=== PATIENT | female | born 1975 | race Caucasian/White ===

== ENCOUNTER → 2016-12-02 | Outpatient (CLI) | payer BC ==
--- NOTE | 2016-12-03 14:28 | MM ---
Reason for exam: screening (asymptomatic). History: Family history of breast cancer in paternal grandmother and breast cancer in aunt. Physical Findings: A clinical breast exam by your physician is recommended on an annual basis and results should be correlated with mammographic findings. MG Screening Mammo w CAD Bilateral CC and MLO view(s) were taken. Prior study comparison: November 22, 2014, mammogram, performed at [facility]. There are scattered fibroglandular densities. No significant changes when compared with prior studies. ASSESSMENT: Benign, BI-RAD 2 RECOMMENDATION: Routine screening mammogram of both breasts in 1 year.
== END | disposition home or self-care (01) ==
LOC: RADMAMWWP 16:48
PROVIDERS: ATTEND Obstetrics & Gynecology
DX: Z12.31 Encounter for screening mammogram for malignant neoplasm of breast (principal)

== ENCOUNTER → 2017-02-06 | Outpatient (CLI) | payer BC ==
--- NOTE | 2017-02-06 21:45 | MR ---
EXAMINATION TYPE: MR shoulder RT wo con DATE OF EXAM: 02/06/2017 9:28 PM COMPARISON: NONE HISTORY: Right shoulder pain since Sep 2016, with Limited ROM TECHNIQUE: Multiplanar multispin echo imaging of the right shoulder was performed. FINDINGS: Rotator cuff : Thickening and heterogeneity of the supraspinatus tendon compatible with tendinopathy. There is partial full-thickness tear involving the supraspinatus tendon near the humeral insertion. No evidence for retracted tear. Small amount of fluid is seen within the subacromial subdeltoid bursa . Remaining rotator cuff tendons are unremarkable. Musculature: There is no muscular tear, contusion, or atrophy. Acromioclavicular joint : Mild AC joint arthropathy. Subacromial spurring resulting subacromial impin gement. Osseous structures : There are no fractures or regions of abnormal bone marrow signal intensity. Long biceps tendon : The biceps tendon is normally situated within the bicipital groove. No complete or partial biceps tendon tear is present. Glenohumeral Joint fluid : There is no glenohumeral joint effusion. Cartilage and Bone : No focal hyaline cartilage defects are noted. No Hill-Sachs, reverse Hill-Sachs, or bony Bankart lesions are seen. Labrum : There are no SLAP or soft tissue Bankart lesions. No paralabral cysts are seen. OTHER FINDINGS : none IMPRESSION: 1. 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
== END | disposition home or self-care (01) ==
LOC: RADMRIMAIN 20:35
PROVIDERS: ATTEND Internal Medicine
DX: S46.811A Strain of other muscles, fascia and tendons at shoulder and upper arm level, right arm, initial encounter (principal)

== ENCOUNTER → 2018-03-03 | Outpatient (CLI) | payer BC, OTHER ==
--- NOTE | 2018-03-05 09:53 | MM ---
Reason for exam: screening (asymptomatic). Last mammogram was performed 1 year and 3 months ago. History: Family history of breast cancer in paternal grandmother and breast cancer in aunt. Physical Findings: A clinical breast exam by your physician is recommended on an annual basis and results should be correlated with mammographic findings. MG 3D Screening Mammo W/Cad Bilateral CC and MLO view(s) were taken. Prior study comparison: December 02, 2016, bilateral MG screening mammo w CAD. November 22, 2014, mammogram, performed at [facility]. There are scattered fibroglandular densities. No significant changes when compared with prior studies. ASSESSMENT: Negative, BI-RAD 1 RECOMMENDATION: Routine screening mammogram of both breasts in 1 year.
== END | disposition home or self-care (01) ==
LOC: RADMAMWWP 11:04
PROVIDERS: ATTEND Obstetrics & Gynecology
DX: Z12.31 Encounter for screening mammogram for malignant neoplasm of breast (principal); Z80.3 Family history of malignant neoplasm of breast
CPT/HCPCS: 77063; 77067

== ENCOUNTER 2018-05-16 15:45 | Emergency (ER) | payer OTHER, BC ==
[2018-05-16 15:59] VITALS: RESP 18; TEMP 99.4
--- NOTE | 2018-05-16 16:45 | XR ---
EXAMINATION TYPE: XR knee complete bilateral DATE OF EXAM: 05/16/2018 COMPARISON: NONE HISTORY: Knee pain TECHNIQUE: 6 views FINDINGS: 3 views of each knee were obtained. I see no fracture nor dislocation. Joint spaces are nor mal. There is no sign of knee joint effusion. IMPRESSION: Negative bilateral knee exam.
[2018-05-16] MEDS ORDERED: ACETAMINOPHEN TAB 500 MG TAB PO STA (16:53)
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
[2018-05-16 19:00] VITALS: BP 138/78; PULSE 80
== END 2018-05-16 18:40 | disposition home or self-care (01) ==
LOC: EC 15:45
DX: S00.83XA Contusion of other part of head, initial encounter (principal); S80.02XA Contusion of left knee, initial encounter; S80.01XA Contusion of right knee, initial encounter; M54.2 Cervicalgia; F17.200 Nicotine dependence, unspecified, uncomplicated; Z79.1 Long term (current) use of non-steroidal anti-inflammatories (NSAID); Z88.2 Allergy status to sulfonamides; V43.52XA Car driver injured in collision with other type car in traffic accident, initial encounter; Y92.410 Unspecified street and highway as the place of occurrence of the external cause
CPT/HCPCS: 70450; 72125; 99285

== ENCOUNTER → 2018-12-16 | Outpatient (CLI) | payer BC ==
--- NOTE | 2018-12-17 08:11 | MM ---
Reason for exam: clinical finding. Last mammogram was performed 9 months ago. History: Family history of breast cancer in paternal grandmother and breast cancer in aunt. Indicated problem(s): palpable abnormality in the right breast. Physical Findings: Nurse Summary: 0.5 x 0.5cm nodule in the right breast at 6 o'clock (nurse ts). MG 3D Diag Mammo W/Cad [facility] Bilateral CC and MLO view(s) were taken. Prior study comparison: March 03, 2018, bilateral MG 3d screening mammo w/cad. December 02, 2016, bilateral MG screening mammo w CAD. The breast tissue is heterogeneously dense. This may lower the sensitivity of mammography. There is no discrete abnormality including area of concern marked by BB. No significant new findings when compared with previous films. These results were verbally communicated with the patient and result sheet given to the patient on 12/16/18. ASSESSMENT: Benign, BI-RAD 2 RECOMMENDATION: Routine screening mammogram of both breasts in 1 year.
--- NOTE | 2018-12-17 08:12 | USB ---
Reason for exam: clinical finding. History: Family history of breast cancer in paternal grandmother and breast cancer in aunt. Indicated problem(s): palpable abnormality in the right breast. US Breast RT Right complete breast ultrasound includes all four quadrants, the retroareolar region and axilla. Finding demonstrates no cystic or solid lesion seen. These results were verbally communicated with the patient and result sheet given to the patient on 12/16/18. ASSESSMENT: Negative, BI-RAD 1 RECOMMENDATION: Routine screening mammogram of both breasts in 1 year. Manage patient on a clinical basis.
== END | disposition home or self-care (01) ==
LOC: RADMAMWWP 14:14
PROVIDERS: ATTEND Obstetrics & Gynecology
DX: N60.09 Solitary cyst of unspecified breast (principal)
CPT/HCPCS: 77062; 77066

== ENCOUNTER 2019-02-24 06:27 | Day surgery (SDC) | payer BC ==
[2019-02-19 10:38] VITALS: BMI 39.9
[~2019-02-24 06:27] MED LIST: HYDROmorphone 0.5 MG/0.5 ML SYRINGE IVP PRN; LACTATED RINGERS 1,000 ML IV SCH; LIDOCAINE 1% 20 ML VIAL (10MG/ML) FOR IV START INTRADERMA PRN; ONDANSETRON 4 MG/2 ML VIAL IVP ONE; Pre Op ABX Message 1 EACH MISC MISCELLANE ONE
[2019-02-24 06:55] VITALS: RESP 16; TEMP 98.4
[2019-02-24] MEDS ORDERED: KETOROLAC 30 MG/ML 1 ML VIAL ONE (07:25)
[2019-02-24] MEDS ORDERED: PROPOFOL 10 MG/ML 20 ML VIAL IV ONE (07:25)
[2019-02-24] MEDS ORDERED: LIDOCAINE 1% INJ 10MG/ML (20 ML MDV) ONE (07:25)
[2019-02-24] MEDS ORDERED: fentaNYL (PF) 50 MCG/ML 2 ML AMP ONE (07:25)
[2019-02-24] MEDS ORDERED: MIDAZOLAM 2 MG/2 ML VIAL ONE (07:25)
[2019-02-24] MEDS ORDERED: SODIUM CHLORIDE 0.9% 50 ML with ceFAZolin 2,000 MG IV ONE ×2 (07:29)
[2019-02-24] MEDS ORDERED: LIDOCAINE 1% INJ 10MG/ML (20 ML MDV) SQ ONE (07:37)
--- NOTE | 2019-02-24 08:12 | P.OP ---
Date of Procedure: 02/24/19 Preoperative Diagnosis: Plantar fasciitis right foot Postoperative Diagnosis: Same Procedure(s) Performed: Endoscopic plantar fasciotomy procedure right foot Anesthesia: MAC Surgeon: Robert Llanes Operative Findings: Unremarkable Description of Procedure: On the date of surgery the patient was taken to the operating room in good preoperative condition she was placed on the operating table in a supine position where an IV was started and adequate IV anesthetic agents were utilized. Anesthesia was then further supplemented with approximately 10 mL of 1% Xylocaine plain given in an infiltrative block to the patient's right heel. The patient's right foot and ankle were then prepped and draped in the usual aseptic manner. Over heavy web roll padding an ankle tourniquet was placed above the patient's malleoli The patient's right foot and ankle were then elevated and exsanguinated of blood and after approximately 1 minutes. A time the ankle tourniquet was inflated to approximately 250 mmHg. At this point in time attention was directed to the plantar medial side of the patient's right heel where an approximately 1 cm linear incision was placed in line with the medial band of the plantar fascia. The incision was was then deepened down through the level of subcutaneous tissue layers all neurovascular structures encountered were identified isolated and were retracted dissection was then carried deep via blunt technique down to the medial band of the plantar fascia a fascial elevator was then used to identify the plantar fascia was pas sed along the inferior surface from medially to laterally rating a channel for the obturator and cannula complex. This was then inserted and a lateral exit portal incision was made the obturator was then removed endoscope was introduced and L blade was introduced from the lateral side and the medial band of the plantar fascia was severed upon completion of this fascial probe was used to ensure that all fibers had been severed and when this was seen to be true the surgical site was flushed with copious amounts of sterile saline solution the cannula was then removed. Skin edges were then coaptated and maintained utilizing 4-0 nylon simple interrupted sutures. Adaptic Kerlix fluffs four-inch conformer and 4 inch Coban was then used to form a compression dressing and the ankle tourniquet to the patient's right ankle was deflated. Adequate hemostatic return was seen in all digits the patient's right foot The patient tolerated the surgery and anesthesia well was taken to the recovery room in good postoperative condition.
[2019-02-24 08:47] VITALS: BP 115/73; PULSE 63
== END 2019-02-24 09:08 | disposition home or self-care (01) ==
LOC: OR 06:27
PROVIDERS: ATTEND Podiatrist Foot & Ankle Surgery
DX: M72.2 Plantar fascial fibromatosis (principal); E66.01 Morbid (severe) obesity due to excess calories; Z68.39 Body mass index [BMI] 39.0-39.9, adult; F17.200 Nicotine dependence, unspecified, uncomplicated; Z79.1 Long term (current) use of non-steroidal anti-inflammatories (NSAID); Z79.899 Other long term (current) drug therapy; Z88.1 Allergy status to other antibiotic agents; Z88.2 Allergy status to sulfonamides; Z98.84 Bariatric surgery status; Z98.51 Tubal ligation status
CPT/HCPCS: 29893; 81025; J2250; J2405; J0690; J2001; J3010; J1885; J2704

== ENCOUNTER → 2019-06-11 | Outpatient (CLI) | payer BC ==
[2019-06-11 12:59] LABS: HCT 40.6 % (34.0-46.0); HGB 13.8 gm/dL (11.4-16.0); MCH 31.6 pg (25.0-35.0); MCHC 34.1 g/dL (31.0-37.0); MCV 92.7 fL (80.0-100.0); Mean Platelet Volume 6.6; Platelet Count 336 k/uL (150-450); RBC 4.38 m/uL (3.80-5.40); RDW 12.5 % (11.5-15.5)
[2019-06-11 21:21] LABS: African American GFR (CKD) 105.4 (60.0-200.0); Albumin 4.1 g/dL (3.80-4.90); Albumin/Globulin Ratio 1.95 (1.60-3.17); Anion Gap 8.9 mmol/L (4.00-12.00); BUN/Creat Ratio 16.25 Ratio (12.00-20.00); Carbon Dioxide 24.1 mmol/L (21.6-31.8); Chol/HDL Ratio 3.15; Globulin 2.1 g/dL (1.6-3.3); LDL Cholesterol,Calculated 104.2 mg/dL (0.0-131.0); Potassium 4.2 mmol/L (3.5-5.5); Total Bilirubin 0.5 mg/dL (0.2-1.2); Total Protein 6.2 g/dL (6.2-8.2); VLDL Calculation 24.8 mg/dL (5.00-40.00)
[2019-06-11 21:27] LABS: T4, Free (Free Thyroxine) 1.2 ng/dL (0.80-1.80)
== END | disposition home or self-care (01) ==
LOC: LABWHC1 11:46
PROVIDERS: ATTEND Internal Medicine
DX: M54.5 Low back pain (principal); R30.0 Dysuria; R10.84 Generalized abdominal pain
CPT/HCPCS: 36415; 80053; 80061; 82150; 84439; 84443; 85027

== ENCOUNTER → 2019-06-26 | Outpatient (CLI) | payer BC ==
--- NOTE | 2019-06-26 20:21 | CT ---
EXAMINATION TYPE: CT abdomen pelvis w con DATE OF EXAM: 06/26/2019 COMPARISON: None INDICATION: abdominal pain DLP: 1418.6 mGycm, Automated exposure control for dose reduction was used. CONTRAST: 100 mL of Isovue 300. Study performed with Oral Contrast TECHNIQUE: Axial images were obtained from above the diaphragm to the pubic rami in the axial plane a t 5 mm thick sections. Reconstructed images are reviewed on the computer in the coronal plane. FINDINGS: Limited CT sections are obtained the lung bases. There is a 0.4 cm faint density within the right mi ddle lobe. Series 4 image 1. Small to moderate size hiatal hernia is present containing oral contras t. CT ABDOMEN: Liver: Normal Spleen: Normal Pancreas: Normal Adrenal glands: The adrenal glands are normal. Gallbladder: Normal Kidneys: No masses are evident. No hydronephrosis is present. No cysts are present. Delayed images were obtained through the kidneys, which remain unremarkable. Aorta: Normal Inferior vena cava: Normal. CT PELVIS: Loops of bowel within the abdomen and pelvis are normal. There are loops of bowel which are incom pletely distended or lack oral contrast limiting their evaluation. Appendix: Not identified. No suspicious tubular structures or inflammatory changes are evident. Urinary bladder: Normal. Genitourinary structures: Uterus appears unremarkable. A 2.2 cm transverse dimension right ovarian cy st is present. This could be further evaluated and followed with ultrasound. Osseous structures: No suspicious lytic or sclerotic lesions. IMPRESSIONS: 1. Right ovarian cyst. This could be further evaluated and followed with ultrasound.
== END | disposition home or self-care (01) ==
LOC: RADCTMAIN 13:10
PROVIDERS: ATTEND Internal Medicine
DX: N83.201 Unspecified ovarian cyst, right side (principal); Z88.2 Allergy status to sulfonamides
CPT/HCPCS: 74177; Q9967

== ENCOUNTER → 2020-11-10 | Outpatient (CLI) | payer BC ==
--- NOTE | 2020-11-14 08:29 | MM ---
Reason for exam: screening (asymptomatic). Last mammogram was performed 1 year and 11 months ago. History: Family history of breast cancer in paternal grandmother and breast cancer in aunt. Physical Findings: A clinical breast exam by your physician is recommended on an annual basis and results should be correlated with mammographic findings. MG 3D Screening Mammo W/Cad Bilateral CC and MLO view(s) were taken. Prior study comparison: December 16, 2018, bilateral MG 3d diag mammo w/cad [facility]. March 03, 2018, bilateral MG 3d screening mammo w/cad. The breast tissue is heterogeneously dense. This may lower the sensitivity of mammography. Superior right MLO asymmetric density does not persist on 3D images. No significant changes when compared with prior studies. ASSESSMENT: Negative, BI-RAD 1 RECOMMENDATION: Routine screening mammogram of both breasts in 1 year.
== END | disposition home or self-care (01) ==
LOC: RADMAMWWP 16:07
PROVIDERS: ATTEND Obstetrics & Gynecology
DX: Z12.31 Encounter for screening mammogram for malignant neoplasm of breast (principal); Z80.3 Family history of malignant neoplasm of breast
CPT/HCPCS: 77063; 77067

== ENCOUNTER → 2022-03-22 | Outpatient (CLI) | payer BC ==
--- NOTE | 2022-03-25 09:44 | MM ---
Reason for Exam: Screening (asymptomatic). Last mammogram was performed 1 year(s) and 4 month(s) ago. Patient History: Menarche at age 12. First Full-Term at age 22. Paternal grandmother had breast cancer. Maternal aunt had breast cancer. Risk Values: Monique 5 year model risk: 0.8%. NCI Lifetime model risk: 9.4%. Prior Study Comparison: 03/03/2018 Bilateral Screening Mammogram, [facility]. 12/16/2018 Bilateral Diagnostic Mammogram, [facility]. 11/10/2020 Bilateral Screening Mammogram, [facility]. Tissue Density: There are scattered fibroglandular densities. Findings: Analyzed By CAD. There is no suspicious group of microcalcifications or new suspicious mass in either breast. Overall Assessment: Negative, BI-RAD 1 Management: Screening Mammogram of both breasts in 1 year. 1. Patient should continue monthly self breast exams. 2. A clinical breast exam by your physician is recommended on an annual basis. 3. This exam should not preclude additional follow-up of suspicious palpable abnormalities. Electronically signed and approved by: Rita Engel M.D. Radiologist
== END | disposition home or self-care (01) ==
LOC: RADMAMWWP 11:47
PROVIDERS: ATTEND Obstetrics & Gynecology
DX: Z12.31 Encounter for screening mammogram for malignant neoplasm of breast (principal); Z80.3 Family history of malignant neoplasm of breast
CPT/HCPCS: 77063; 77067

== ENCOUNTER → 2022-06-26 | Outpatient (CLI) | payer BC ==
[2022-06-26 18:33] LABS: Basophils # (A) 0.07 X 10*3/uL (0.00-0.10); Basophils % (A) 1.2 %; Eosinophils # (A) 0.14 X 10*3/uL (0.04-0.35); Eosinophils % (A) 2.5 %; HCT 34.9 % (37.2-46.3); HGB 11.5 g/dL (12.0-15.0); Immature Grans, Automated 0.2 %; Lymphocytes # (A) 2.17 X 10*3/uL (0.90-5.00); Lymphocytes % (A) 38.2 %; MCV 88.1 fL (80.0-97.0); Monocytes # (A) 0.48 X 10*3/uL (0.20-1.00); Monocytes % (A) 8.5 %; NRBC Per 100 WBC 0 /100 WBCS (0.0-0.0); Neutrophils # (A) 2.81 X 10*3/uL (1.80-7.70); Neutrophils % (A) 49.4 %; Platelet Count 337 X 10*3/uL (140-440); RBC 3.96 X 10*6/uL (4.10-5.20); RDW 13.9 % (11.5-14.5); WBC 5.68 X 10*3/uL (4.50-10.00)
== END | disposition home or self-care (01) ==
LOC: LABPAT 14:04
PROVIDERS: ATTEND Obstetrics & Gynecology
DX: Z01.812 Encounter for preprocedural laboratory examination (principal); N92.0 Excessive and frequent menstruation with regular cycle
CPT/HCPCS: 85025

== ENCOUNTER 2022-07-23 07:59 | Day surgery (SDC) | payer BC ==
[2022-07-22 14:26] VITALS: BMI 36.6
[~2022-07-23 07:59] MED LIST changes: +DEXAMETHASONE SOD PHOSPHATE 4 MG/ML 1 ML VIAL IV ONE; +LIDOCAINE 1% (10MG/ML) FOR IV START INTRADERMA PRN; -LIDOCAINE 1% 20 ML VIAL (10MG/ML) FOR IV START INTRADERMA PRN; +SCOPOLAMINE 1 MG/72 HR PATCH TRANSDERM ONE
[2022-07-23] MEDS ORDERED: LIDOCAINE 2% INJ 20 MG/ML (2 ML VIAL) ONE (09:28)
[2022-07-23] MEDS ORDERED: KETOROLAC 15 MG/ML 1 ML VIAL ONE (09:28)
[2022-07-23] MEDS ORDERED: PROPOFOL 10 MG/ML 20 ML VIAL IV ONE (09:28)
[2022-07-23] MEDS ORDERED: MIDAZOLAM 2 MG/2 ML VIAL ONE (09:28)
[2022-07-23] MEDS ORDERED: fentaNYL (PF) 50 MCG/ML 2 ML AMP ONE (09:28)
--- NOTE | 2022-07-23 09:56 | P.OP ---
Date of Procedure: 07/23/22 Preoperative Diagnosis: Menorrhagia Postoperative Diagnosis: Same Procedure(s) Performed: Hysteroscopy, NovaSure endometrial ablation Anesthesia: HEIKE Surgeon: Thalia Schmitt Estimated Blood Loss (ml): 5 IV fluids (ml): 500 Urine output (ml): 50 Pathology: none sent Condition: stable Disposition: PACU Operative Findings: Essentially negative. Intrauterine cavity, no fibroids, polyps, septa, defects. Description of Procedure: Patient is brought to the operating suite where general anesthetic is administered without difficulty. She's placed in the dorsal lithotomy position. The appropriate timeout was performed to assure proper patient and procedural identification. Urine hCG is negative. The cervix, vagina, perineal bodies are all prepped and draped in usual sterile fashion. Bladder is drained for approximately 50 mL of clear yellow urine. Examination under anesthesia reveals a small anteverted uterus, negative adnexa bilaterally. The weighted speculum was placed into the vagina. The anterior lip of the cervix is grasped with an Allis clamp. Uterus sounds to a depth of 12 cm in the anteverted position. Cervix was gently and systematically dilated using Hanks dilators with very l ittle resistance. Hysteroscope was placed and cavity is infused with sterile saline. The cavity appears negative, no polyps, fibroids, septa, defects. Hysteroscope was removed. NovaSure wand is then placed and seated. For 52 seconds and a power of 143 W the procedure is carried out after the machine is properly calibrated and enabled. Uterine length of 6.5 cm is noted, with 4.0 cm. When the procedure is completed, the wand is removed. Hysteroscope was once again placed and the cavity appears to be uniformly blanched. All instrumentation is removed. All counts are correct. Patient is brought back to recovery room in very good condition with stable vital signs including blood pressure 126/74, pulse 64. Respirations 16. Toradol is given prior to leaving the operative suite. Patient will follow-up with me in the office in 2 weeks.
[2022-07-23 09:58] VITALS: RESP 16; TEMP 97.5
[2022-07-23 11:18] VITALS: PULSE 69
[2022-07-23 11:34] VITALS: BP 114/63
== END 2022-07-23 12:10 | disposition home or self-care (01) ==
LOC: OR 07:59
PROVIDERS: ATTEND Obstetrics & Gynecology
DX: N92.0 Excessive and frequent menstruation with regular cycle (principal); G40.909 Epilepsy, unspecified, not intractable, without status epilepticus; Z98.51 Tubal ligation status; Z79.899 Other long term (current) drug therapy
CPT/HCPCS: 81025; 58563; J2250; J1100; J2405; J3010; J1885; J2704; J2001

== ENCOUNTER 2023-07-31 06:59 | Day surgery (SDC) | payer BC ==
[2023-07-31] MEDS ORDERED: LACTATED RINGERS 1,000 ML IV SCH (07:14)
[2023-07-31 07:39] VITALS: RESP 16; TEMP 97.7
[2023-07-31] MEDS ORDERED: PROPOFOL 10 MG/ML 20 ML VIAL IV ONE (07:54)
[2023-07-31] MEDS ORDERED: LIDOCAINE 1% INJ 10MG/ML (20 ML MDV) ONE (07:54)
--- NOTE | 2023-07-31 08:01 | P.GSHP ---
History of Present Illness H&P Date: 07/31/23 Chief Complaint: Screening colonoscopy This a 47-year-old female been safe for screening colonoscopy. Patient denies any significant GI complaints. Past Medical History Past Medical History: No Reported History Additional Past Medical History / Comment(s): MIGRAINES History of Any Multi-Drug Resistant Organisms: None Reported Past Surgical History: Bariatric Surgery, Section, Orthopedic Surgery Additional Past Surgical History / Comment(s): gastric sleeve and bypass. right foot surg. Past Anesthesia/Blood Transfusion Reactions: No Reported Reaction Smoking Status: Current some day smoker - Past Family History Mother Family Medical History: No Reported History Medications and Allergies Home Medications Medication Instructions Recorded Confirmed Type Butalb/Acetaminophen/Caffeine 1 cap PO Q4HR PRN 05/16/18 07/31/23 History [Fioricet 50-300-40 mg Capsule] Meloxicam [Mobic] 15 mg PO DAILY PRN 05/16/18 07/31/23 History Citalopram Hydrobromide [CeleXA] 20 mg PO DAILY 07/22/22 07/31/23 History Allergies Allergy/AdvReac Type Severity Reaction Status Date / Time sulfamethoxazole AdvReac Itching Verified 07/31/23 07:21 [From Bactrim] trimethoprim [From Bactrim] AdvReac Itching Verified 07/31/23 07:21 Surgical - Exam Vital Signs Temp Pulse Resp BP Pulse Ox 97.7 F 61 16 136/66 98 07/31/23 07:25 07/31/23 07:25 07/31/23 07:25 07/31/23 07:25 07/31/23 07:25 - General well developed, well nourished, no distress - Eyes PERRL - ENT normal pinna - Neck no masses - Respiratory normal expansion - Cardiovascular Rhythm: regular - Abdomen Abdomen: soft, non tender Assessment and Plan Plan: We'll perform screening colonoscopy
--- NOTE | 2023-07-31 08:20 | P.OP ---
Date of Procedure: 07/31/23 Preoperative Diagnosis: Screening colonoscopy Postoperative Diagnosis: Normal colon Procedure(s) Performed: Colonoscopy Anesthesia: MAC Surgeon: Beni Bocanegra Pathology: none sent Condition: stable Disposition: PACU Description of Procedure: PROCEDURE: The patient was placed on the endoscopy table in the lateral position. Digital rectal examination was performed which revealed no abnormalities. . Flexible colonoscope was then placed in the patient's anus and passed throughout the entire colon. The ileocecal valve was visualized. The cecum, ascending, transverse, descending and sigmoid colon were normal. The rectum was normal as well. There were no masses, polyps or diverticula noted in the entire colon. SUMMARY OF FINDINGS: Normal colonoscopy.
[2023-07-31 08:51] VITALS: BP 135/78; PULSE 63
== END 2023-07-31 09:06 | disposition home or self-care (01) ==
LOC: ORWHC2ENDO 06:59
PROVIDERS: ATTEND Surgery
DX: Z12.11 Encounter for screening for malignant neoplasm of colon (principal); G43.909 Migraine, unspecified, not intractable, without status migrainosus; F12.90 Cannabis use, unspecified, uncomplicated; F17.210 Nicotine dependence, cigarettes, uncomplicated; Z79.899 Other long term (current) drug therapy; Z88.2 Allergy status to sulfonamides; Z88.1 Allergy status to other antibiotic agents; Z98.890 Other specified postprocedural states
CPT/HCPCS: 81025; 45378; J2001; J2704

== ENCOUNTER → 2024-06-17 | Outpatient (CLI) | payer BC ==
--- NOTE | 2024-06-18 09:24 | MM ---
Reason for Exam: Screening (asymptomatic). Last mammogram was performed 2 year(s) and 3 month(s) ago. Patient History: Menarche at age 12. First Full-Term at age 22. Premenopausal. Paternal grandmother had breast cancer. Maternal aunt had breast cancer. Risk Values: Monique 5 year model risk: 0.9%. NCI Lifetime model risk: 9.2%. Prior Study Comparison: 12/16/2018 Bilateral Diagnostic Mammogram, [facility]. 11/10/2020 Bilateral Screening Mammogram, [facility]. 03/22/2022 Bilateral MG 3D screening mammo w/cad, [facility]. Tissue Density: There are scattered areas of fibroglandular density. Findings: Analyzed By CAD. Right breast: There is no suspicious group of microcalcifications or new suspicious mass. Left breast: There is no suspicious group of microcalcifications or new suspicious mass. Overall Assessment: Negative, BI-RAD 1 Management: Screening Mammogram of both breasts in [address] [facility] will attempt to contact patient to return for supplemental views and ultrasound if indicated. Patient should continue monthly self-breast exams. A clinical breast exam by your physician is recommended on an annual basis. This exam should not preclude additional follow-up of suspicious palpable abnormalities. Note on Monique scores and lifetime risk: 1. A Monique score greater than 3% is considered moderate risk. If this is the case, consider specialist referral to assess eligibility for a risk reducing agent. 2. If overall lifetime risk for the development of breast cancer is 20% or higher, the patient may qualify for future screening with alternating mammogram and breast MRI. [facility], , 06/18/2024 9:20 AM. Electronically signed and approved by: Bruce Mac DO
== END ==
LOC: RADMAMWWP 16:36
PROVIDERS: ATTEND Family Medicine
CPT/HCPCS: 77063; 77067

== ENCOUNTER 2025-01-27 05:40 | Day surgery (SDC) | payer BC ==
[2025-01-27] MEDS ORDERED: LIDOCAINE 1% (10MG/ML) FOR IV START INTRADERMA PRN (06:06)
[2025-01-27] MEDS: IV FLUID CONTINUATION 1,000 ML IV ONE (06:12)
[2025-01-27] MEDS: DEXAMETHASONE SOD PHOSPHATE 4 MG/ML 1 ML VIAL IV ONE (06:50)
[2025-01-27] MEDS: ONDANSETRON 4 MG/2 ML VIAL IVP ONE (06:50)
[2025-01-27] MEDS: LACTATED RINGERS 1,000 ML IV SCH (06:51)
[2025-01-27] MEDS ORDERED: HYDROmorphone 0.5 MG/0.5 ML SYRINGE IVP PRN (07:00)
[2025-01-27] MEDS: MIDAZOLAM 2 MG/2 ML VIAL IV STA (07:03)
[2025-01-27] MEDS: fentaNYL (PF) 50 MCG/ML 2 ML AMP IVP STA (07:03)
[2025-01-27] MEDS ORDERED: ACETAMINOPHEN IV (For NPO) 1,000 MG/100 ML VIAL ONE (07:30)
[2025-01-27] MEDS ORDERED: diphenhydrAMINE 50 MG/ML 1 ML VIAL ONE (07:30)
[2025-01-27] MEDS ORDERED: MORPHINE SULFATE (PF) 0.3 MG/0.3 ML SYR ONE (07:30)
[2025-01-27] MEDS ORDERED: fentaNYL (PF) 50 MCG/ML 2 ML AMP ONE (07:30)
[2025-01-27] MEDS ORDERED: SUCCINYLCHOLINE CHLORIDE 200 MG/10 ML VIAL IV ONE (07:30)
[2025-01-27] MEDS ORDERED: NEOSTIGMINE 1 MG/ML 10 ML VIAL ONE (07:30)
[2025-01-27] MEDS ORDERED: MIDAZOLAM 2 MG/2 ML VIAL ONE (07:30)
[2025-01-27] MEDS ORDERED: PHENYLEPHRINE-0.9% NACL SYG 1,000 MCG/10 ML SYRINGE ONE (07:30)
[2025-01-27] MEDS ORDERED: LIDOCAINE 1% INJ 10MG/ML (20 ML MDV) ONE (07:30)
[2025-01-27] MEDS ORDERED: PROPOFOL 10 MG/ML 20 ML VIAL IV ONE (07:30)
[2025-01-27] MEDS ORDERED: ROCURONIUM 10 MG/ML (5 ML VIAL) IV ONE (07:30)
[2025-01-27] MEDS ORDERED: GLYCOPYRROLATE 0.2 MG/ML 2 ML VIAL ONE (07:30)
[2025-01-27] MEDS: ceFAZolin 2 GM in DEXTROSE 5% IN WATER 50 ML IVPB PRN (07:35)
--- NOTE | 2025-01-27 07:39 | P.HPOB ---
History of Present Illness H&P Date: 01/27/25 Chief Complaint: Abnormal uterine bleeding 49 year old presenting with AUB after endometrial ablation in 2021. Uterus is 9 x 6 x 5 cm on US. 4cm Right ovarian cyst and 6 cm left ovarian cyst,both simpe, are noted. Past Medical History Past Medical History: Cancer Additional Past Medical History / Comment(s): MIGRAINES, skin ca, chronic back pain & right shoulder pain History of Any Multi-Drug Resistant Organisms: None Reported Past Surgical History: Bariatric Surgery, Section, Orthopedic Surgery, Tubal Ligation, Uterine Ablation Additional Past Surgical History / Comment(s): gastric sleeve and bypass, right foot surg., x2, skin ca removed Past Anesthesia/Blood Transfusion Reactions: No Reported Reaction Smoking Status: Current some day smoker - Past Family History Mother Family Medical History: Coronary Artery Disease (CAD) Additional Family Medical History / Comment(s): CABG Father Family Medical History: Hypertension Additional Family Medical History / Comment(s): kidney issue Medications and Allergies Home Medications Medication Instructions Recorded Confirmed Type Butalb/Acetaminophen/Caffeine 1 cap PO Q4HR PRN 05/16/18 01/27/25 History [Fioricet 50-300-40 mg Capsule] Meloxicam [Mobic] 15 mg PO DAILY PRN 05/16/18 01/27/25 History Citalopram Hydrobromide [CeleXA] 20 mg PO DAILY 07/22/22 01/27/25 History HYDROcodone/APAP 5-325MG [[place] 1 tab PO BID PRN 01/21/25 01/27/25 History 5-325] Allergies Allergy/AdvReac Type Severity Reaction Status Date / Time sulfamethoxazole AdvReac Itching Verified 01/27/25 06:27 [From Bactrim] trimethoprim [From Bactrim] AdvReac Itching Verified 01/27/25 06:27 Exam Vital Signs Temp Pulse Resp BP Pulse Ox 01/27/25 07:08 63 16 116/65 98 01/27/25 06:39 97.3 F L 78 18 121/79 96 Intake and Output 01/26/25 01/27/25 01/27/25 22:59 06:59 14:59 Intake Total 200 Balance 200 Intake: IV 200 Other: Weight 103.6 kg Focused physical exam is performed. The patient is in no apparent distress, breathing is non-labored. Abdomen soft, non-tender. Extremities are non-tender and non-edematous. Assessment and Plan Assessment: 49 year old presenting for surgical management of AUB after failed endometrial ablation Plan: Risks, benefits, and alternatives to Robotic Total Laparoscopic Hysterectomy, Bilateral Salpingectomy, Bilateral Cystectomy, Diagnostic Cystoscopy, Possible Laparotomy, Possible Oophrectomy including risk of bleeding, infection, damage to surrounding structures including bladder/bowels/ureters, and post-operative VTE. The patient understands these risks and desires to proceed with surgery as discussed. All questions answered.
[2025-01-27] MEDS: BUPIVACAINE (PF) 0.25% 30 ML VIAL SQ ONE ×2 (08:24→09:10)
[2025-01-27] MEDS: LACTATED RINGERS 1,000 ML IV ONE (09:00)
--- NOTE | 2025-01-27 09:34 | P.ANPRN ---
Procedure Note - Anesthesia - Epidural/Spinal Spinal Time Out Performed: Yes Date of Procedure: 01/27/25 Procedure Start Time: 07:03 Procedure Stop Time: 07:07 Location of Patient: PreOp Indication: Acute Post-Operative Pain, Requested by Surgeon (vin) Sedation Type: Sedate with meaningful contact maintained Preparation: Sterile Prep Number of Attempts: 1 Position: Sitting Catheter: None Needle Guage: 25 Injectate: Local Lido 1% 3cc, Intrathecal Fentanyl 25mcg and Duramorph 300mcg Blood Aspirated: No Pain Paresthesia on Injection Noted: No Events: Uneventful and Well Tolerated
--- NOTE | 2025-01-27 09:43 | P.OP ---
Date of Procedure: 01/27/25 Preoperative Diagnosis: 1. Abnormal Uterine Bleeding 2. History of Prior Endometrial Ablation 3. Bilateral simple ovarian cysts Postoperative Diagnosis: 1. AUB 2. History of prior endometrial ablation 3. 1 simple and 1 hemorrhaghic right ovarian cyst Procedure(s) Performed: Robotic Assisted Total Laparoscopic Hysterectomy, Bilateral Salpingectomy, Lysis of Adhesions (10 minutes), Diagnostic Cystoscopy Implants: None Anesthesia: GETA, spinal Surgeon: Sarahi Cade Tracer Lathe Set Up Operator #1: Juana Rivera Estimated Blood Loss (ml): 50 IV fluids (ml): 1,300 Urine output (ml): 75 Pathology: other (uterus, bilateral fallopian tube segments, cervix) Condition: stable Disposition: floor Indications for Procedure: Ms. Adames is a 49 year old with AUB that persisted after an endometrial ablation who presents for surgical management with Robotic Asssited Total Laparoscopic Hysterectomy, Bilateral Salpingectomy, Bilateral Ovarian Cystectomy, Diagnostic Cystoscopy. Risks, benefits, and alternatives to surgery are discussed with the patient including risk of bleeding, infection, damage to surrounding structures including bladder/bowel/ureters, and post-operative VTE. The patient understands these risks and desires to proceed with surgery as discussed. Operative Findings: Omental adhesions to the anterior and lateral abdominal wall. Grossly u nremarkable uterus. Fallopian tubes status post tubal ligation. Right ovary with one small simple cyst and one small hemorrhaghic cyst. Left ovary unremarkable. Cystoscopy with cystitis cystica noted. Description of Procedure: Prior to the beginning of the procedure, the team paused to verify the patient's identity, the procedure to be performed (in accordance with the consent,) and the correct side/site. The patient was positioned appropriately. All relevant images and results were properly labeled and displayed. We addressed antibiotic prophylaxis and fluids for irrigation as applicable to this patient. Any safety precautions were addressed. The patient was taken to the operating room where general anesthesia was induced without difficulty. She was then positioned in the dorsal lithotomy position in Inocente stirrups. Positioning included placing her arms at her sides. After the patient was placed in what was felt to be a neurologically safe position, deep T rendelenburg position was tested prior to the operative procedure, to ensure that she would not move on the operating table. The patient was then prepped and draped in the normal sterile fashion for a combined abdominovaginal surgery. A Estrella catheter was placed in the bladder for continuous drainage. Uterus was sounded to 7 cm. V-Care manipulator was placed in the uterus for manipulation. Attention was then placed to the abdomen. The normal length Veress needle was introduced into the abdominal cavity while tenting the abdominal wall. Low pressure was noted confirming appropriate placement. The abdomen was then insufflated to 15mmHg for the remainder of the case. The Veress needle was removed, and an 8 mm port was placed at the umbilical site under direct laparscopic visualization and there was no evidence of injury from the trocar placement. Visualization of the intraabdominal cavity showed normal pelvic anatomy without evidence of adhesions. The port sites for the remainder of the case were then measured out and placed under direct visualization. On the left side, one 8 mm robotic assist port and one 10 mm assist port were placed. On the right side, one 8 mm robotic port was placed. The Ludii robot was then brought to the operative field in a lateral docking style to the left of the patient and the robot was docked to the ports. All robotic instruments were brought into the pelvis under direct visualization with monopolar scissors in arm #3 and vessel sealer in arm #1. Lysis of omental adhesions to the anterior abdominal wall and the lateral abdominal wall was performed with the monopolar scissors and the vessel sealer. Bilateral ureters were visualized prior to starting the surgery. A segment of the right fallopian tube was cauterized, cut, and removed from the abdomen. The right uteroovarian ligement was cauterized and cut. The right round ligament was cauterized and cut. Broad ligament was opened and bladder flap created. This was repeated on the left side with a portion of the left tube being removed at that time with the vessel sealer. The peritoneum of the bilateral broad ligaments was then taken down and monopolar cautery used to skeletonize the uterine arteries bilaterally. During the course of this dissection, the anterior leaf of the broad ligament was also taken down over the anterior aspect of the uterus and cervix to create a bladder flap. The bladder was then dissected off the cervix and upper vagina with the monopolar scissors and gentle blunt dissection. The bilateral uterine arteries were then cauterized and divided at the level of the internal cervical os. The monopolar cautery was used to incise the vaginal cuff. The uterus, along with the cervix was removed vaginally. Cuff was closed in with 0-Stratifix sutures. FloSeal was placed along the pedicles and vaginal cuff for bleeding prophylaxis. Excellent hemostasis was noted at this time. A 70 degree cystoscopy was performed which confirmed no suture placement within the bladder, no trauma to the bladder. Cystitis cystica was noted. Good efflux was noted from both ureteric orifices. The robot was undocked from the trocars and brought out of the operative field. The remainder of the ports were removed, and the gas was allowed to escape. All skin incisions were infiltrated with lidocaine and closed with 4-0 Monocryl and dermabond. Hemostasis was noted to be excellent throughout, and final sponge, instrument, and needle count was noted to be correct. The patient was moved back to the preoperative holding area in stable condition having tolerated the procedure well. A physician surgical technologist was utilized for the entire procedure due to the need for tissue retraction, dissection of vital structures, prevention and management of blood loss, and reduction in overall operative and anesthesia time as is the standard of care.
[2025-01-27] MEDS: ONDANSETRON 4 MG/2 ML VIAL IVP PRN (13:49)
[2025-01-27] MEDS: diphenhydrAMINE 50 MG/ML 1 ML VIAL IVP PRN (17:37)
[2025-01-27] MEDS: droPERidol 2.5 MG/ML VIAL IVP ONE (21:38)
[2025-01-27] MEDS: ACETAMINOPHEN TAB 500 MG TAB PO SCH (23:35)
[2025-01-27] MEDS: IBUPROFEN 800 MG TAB PO SCH (23:35)
[2025-01-28 05:07] LABS: Basophils # (A) 0.03 10*3/uL (0.00-0.10); Basophils % (A) 0.3 %; Eosinophils # (A) 0.03 10*3/uL (0.04-0.35); Eosinophils % (A) 0.3 %; HGB 10.1 g/dL (12.0-15.0); Lymphocytes # (A) 2.47 10*3/uL (0.90-5.00); Lymphocytes % (A) 22.1 %; MCH 27.6 pg (27.0-32.0); MCHC 32.6 g/dL (32.0-37.0); MCV 84.7 fL (80.0-97.0); Mean Platelet Volume 10.7 fL (9.5-12.2); Monocytes # (A) 1.09 10*3/uL (0.20-1.00); Monocytes % (A) 9.8 %; Neutrophils # (A) 7.51 10*3/uL (1.80-7.70); Neutrophils % (A) 67.2 %; Platelet Count 280 10*3/uL (140-440); RBC 3.66 10*6/uL (4.10-5.20); RDW 15.3 % (11.5-14.5); WBC 11.16 10*3/uL (4.50-10.00)
--- NOTE | 2025-01-28 08:29 | P.DS ---
Providers Date of admission: 01/27/2025 Expected date of discharge: 01/28/25 Attending physician: Sarahi Cade MD Primary care physician: Steven Pritchard MD Hospital Course: 49 year old female POD#1 s/p DARWINLVaishali, BS, Dx Cystoscopy without complications. Patient desires discharge home today. The patient is doing well this morning and had no acute events overnight. She has no complaints this morning. She reports minimal vaginal spotting, passing flatus, voiding without difficulty, ambulating, and eating/drinking without nausea or vomiting. She denies chest pain, shortness of breathing, fevers, or chills overnight. She denies pain or swelling in the legs. Postoperative restrictions are reviewed with the patient including pelvic rest for 6 weeks, no lifting heavier than 15 pounds for 6 weeks. The patient is encouraged to call the office if she experiences any heavy bleeding, foul-smelling discharge, or any if she has any other concerns. She will follow up in the office with in 2 weeks for postoperative exam. All questions are answered. Patient Condition at Discharge: Good Plan - Discharge Summary Discharge Rx Participant: Yes New Discharge Prescriptions: No Action Meloxicam [Mobic] 15 mg PO DAILY PRN PRN Reason: Pain Butalb/Acetaminophen/Caffeine [Fioricet 50-300-40 mg Capsule] 1 cap PO Q4HR PRN PRN Reason: Migraine Headache Citalopram Hydrobromide [CeleXA] 20 mg PO DAILY HYDROcodone/APAP 5-325MG [[place] 5-325] 1 tab PO BID PRN PRN Reason: Pain Discharge Medication List Butalb/Acetaminophen/Caffeine [Fioricet 50-300-40 mg Capsule] 1 cap PO Q4HR PRN 05/16/18 [History] Meloxicam [Mobic] 15 mg PO DAILY PRN 05/16/18 [History] Citalopram Hydrobromide [CeleXA] 20 mg PO DAILY 07/22/22 [History] HYDROcodone/APAP 5-325MG [[place] 5-325] 1 tab PO BID PRN 01/21/25 [History] Follow up Appointment(s)/Referral(s): Sarahi Cade MD [STAFF PHYSICIAN] - 2 Weeks Activity/Diet/Wound Care/Special Instructions: Postoperative Instructions 1. No heavy lifting or straining (exercising) until after 6 week checkup. 2. Do not resume sexual relations for 6 weeks or longer if uncomfortable. 3. Keep abdominal incision clean and dry: You may wear a dressing if more comfortable. 4. Keep any areas repaired with stitches clean and dry. 5. Call the office, , within the next week to make appointment for your 2 week checkup 6. Report any of the following occurrences to the doctor promptly: a. Heavy, excessive bleeding b. Chills, fever c. Burning or frequency of urination d. Pain or redness around the incisions Discharge Disposition: HOME SELF-CARE
--- NOTE | 2025-01-28 11:40 | P.PN ---
Progress Note - Text 01/28/25 618am 49-year-old female status post recent hysterectomy with spinal Duramorph. Patient was seen and evaluated for postop pain control, she has a VAS of 0 with complaints of mild nausea that she had after the surgery and pruritus which is lasted through the night. Pruritus will subside soon otherwise doing well
[2025-01-28 11:50] VITALS: BP 111/64; PULSE 70; RESP 17; TEMP 98.3
[2025-01-28] MEDS: SIMETHICONE 80 MG CHEWABLE PO STA (15:20)
== END 2025-01-28 15:20 | disposition home or self-care (01) ==
LOC: OR 05:40 → 4FBP 09:20 → OR 01-28 15:20
PROVIDERS: ATTEND Obstetrics & Gynecology
DX: D25.1 Intramural leiomyoma of uterus (principal); N83.201 Unspecified ovarian cyst, right side; N83.202 Unspecified ovarian cyst, left side; N80.03 Adenomyosis of the uterus; G89.29 Other chronic pain; G89.18 Other acute postprocedural pain; L29.9 Pruritus, unspecified; F17.200 Nicotine dependence, unspecified, uncomplicated; Z98.51 Tubal ligation status; Z82.49 Family history of ischemic heart disease and other diseases of the circulatory system; Z88.2 Allergy status to sulfonamides; Z88.1 Allergy status to other antibiotic agents
CPT/HCPCS: 58571; S2900; 81025; 85025; 88307